=== PATIENT | female | born 1955 | race African-American/Black ===

== ENCOUNTER 2016-12-15 20:49 | Emergency (ER) | payer MEDICARE, MEDICAID ==
[~2016-12-15] VITALS: Ht 157.5 cm; Wt 69.0 kg
[2016-12-15 22:57] VITALS: BP 132/87
[2016-12-15] MEDS ORDERED: KETOROLAC 60MG/2ML VIAL IM ONE (23:00)
== END 2016-12-15 23:57 | disposition left against medical advice (07) ==
LOC: ER 22:39
DX: S62.125A Nondisplaced fracture of lunate [semilunar], left wrist, initial encounter for closed fracture (principal); I10 Essential (primary) hypertension; F17.210 Nicotine dependence, cigarettes, uncomplicated; X58.XXXA Exposure to other specified factors, initial encounter; Y93.89 Activity, other specified; Y92.89 Other specified places as the place of occurrence of the external cause; Y99.8 Other external cause status
CPT/HCPCS: 73100; 73110; 73120; 73130; 96372; 99284; J1885

== ENCOUNTER 2016-12-17 08:04 | Emergency (ER) | payer OTHER, MEDICAID ==
[~2016-12-17] VITALS: Ht 157.5 cm; Wt 87.0 kg
[2016-12-17 08:28] VITALS: BP 123/90
== END 2016-12-17 10:04 | disposition home or self-care (01) ==
LOC: ER 08:32
DX: M79.642 Pain in left hand (principal); M25.532 Pain in left wrist; X50.9XXA Other and unspecified overexertion or strenuous movements or postures, initial encounter; X50.0XXA Overexertion from strenuous movement or load, initial encounter; Y93.F2 Activity, caregiving, lifting; Y92.091 Bathroom in other non-institutional residence as the place of occurrence of the external cause; I10 Essential (primary) hypertension; F17.210 Nicotine dependence, cigarettes, uncomplicated
CPT/HCPCS: 29125; 99283

== ENCOUNTER 2018-07-27 20:24 | Emergency (ER) | payer OTHER, MEDICAID ==
[~2018-07-27] VITALS: Ht 157.5 cm; Wt 86.6 kg
[2018-07-27] MEDS ORDERED: KETOROLAC 30MG/ML VIAL IM ONE (22:00)
[2018-07-27] MEDS ORDERED: TRAMADOL 50MG TABLET PO ONE (22:00)
[2018-07-28 00:33] VITALS: BP 128/89
== END 2018-07-28 00:33 | disposition home or self-care (01) ==
LOC: ER 20:24
DX: M19.032 Primary osteoarthritis, left wrist (principal); M19.031 Primary osteoarthritis, right wrist; I10 Essential (primary) hypertension; Z88.6 Allergy status to analgesic agent; Z98.890 Other specified postprocedural states
CPT/HCPCS: 36415; 73110; 84550; 96372; 99284; J1885